=== PATIENT | male | born 1955 | race African-American/Black ===

== ENCOUNTER 2022-05-12 11:10 | Observation (INO) ==
[2022-05-12] MEDS ORDERED: ALUM/MAG/SIMETH/LIDO VISC 1:1 30 ML BOTTLE PO STA (11:45)
[2022-05-12] MEDS ORDERED: ASPIRIN 325 MG TABLET PO STA (11:45)
[2022-05-12] MEDS ORDERED: ONDANSETRON 4 MG/2 ML VIAL IV ONE (11:45)
[2022-05-12] MEDS ORDERED: MORPHINE 2 MG/1 ML SYRINGE IV ONE (11:45)
[2022-05-12 11:57] LABS: Basophils % 0.5 % (0.0-0.8); Eosinophils # 0.2 10*3/uL (0.0-0.87); Eosinophils % 2.5 % (0.00-10.9); Hematocrit 50.5 VOL% (42.0-52.0); Hemoglobin 15.8 GM/DL (14.0-18.0); Immature Granulocytes % 0.6 %; Immature Granulocytes Absolute 0.04 #; Lymphocytes # 1.4 10*3/uL (1.4-4.0); Lymphocytes % 22.5 % (21.2-54.2); Mean Corpuscular HGB Conc 31.3 GM/DL (32-36); Mean Corpuscular Volume 73.6 FL (87-102); Mean Platelet Volume 9.5 FL (9.6-12.0); Monocytes # 0.5 10*3/uL (0.11-0.8); Monocytes % 7.2 % (1.7-12.7); Neutrophils % 66.7 % (38.7-73.9); Platelet Count 250 T/CUMM (130-400); Red Blood Count 6.86 MC/CUMM (3.8-5.5); Red Cell Distribution Width 17.7 % (9.3-17.3); White Blood Count 6.4 T/CUMM (4-12)
[2022-05-12 12:08] LABS: Partial Thromboplastin Time 28.7 SECS (23.7-32.9)
[2022-05-12 12:21] LABS: Albumin 3.9 G/DL (3.4-5.0); Bilirubin,Total 0.8 MG/DL (0.20-1.00); Calcium 9.2 MG/DL (8.5-10.1); Osmolality,Calculated 282.3 MOS/KG (273-304); Potassium 4.7 MMOL/L (3.5-5.1); Total Protein 7.2 G/DL (6.4-8.2)
[2022-05-12] MEDS ORDERED: ACETAMINOPHEN 325 MG TABLET PO PRN (13:45)
[2022-05-12] MEDS ORDERED: ONDANSETRON 4 MG/2 ML VIAL IV PRN (13:45)
[2022-05-12] MEDS ORDERED: MORPHINE 2 MG/1 ML SYRINGE IV PRN (13:45)
[2022-05-12] MEDS ORDERED: NITROGLYCERIN SL 0.4 MG TABLET SL PRN (13:45)
[2022-05-12] MEDS ORDERED: ENOXAPARIN 40 MG/0.4 ML SYRINGE ONE (15:09)
[2022-05-12] MEDS: PANTOPRAZOLE 40 MG TABLET PO SCH (15:18)
[2022-05-12] MEDS ORDERED: ENOXAPARIN 40 MG/0.4 ML SYRINGE SUBCUT SCH (21:00)
[2022-05-13 04:31] LABS: Basophils % 0.7 % (0.0-0.8); Eosinophils # 0.2 10*3/uL (0.0-0.87); Eosinophils % 3.3 % (0.00-10.9); Hematocrit 45.9 VOL% (42.0-52.0); Hemoglobin 14.6 GM/DL (14.0-18.0); Immature Granulocytes % 0.3 %; Immature Granulocytes Absolute 0.02 #; Lymphocytes # 2.6 10*3/uL (1.4-4.0); Lymphocytes % 42.3 % (21.2-54.2); Mean Corpuscular HGB Conc 31.8 GM/DL (32-36); Mean Corpuscular Volume 73.9 FL (87-102); Monocytes # 0.7 10*3/uL (0.11-0.8); Monocytes % 12.2 % (1.7-12.7); Neutrophils % 41.2 % (38.7-73.9); Platelet Count 226 T/CUMM (130-400); Red Blood Count 6.21 MC/CUMM (3.8-5.5); Red Cell Distribution Width 17.2 % (9.3-17.3); White Blood Count 6.1 T/CUMM (4-12)
[2022-05-13 04:53] LABS: Calcium 8.7 MG/DL (8.5-10.1); Osmolality,Calculated 281.3 MOS/KG (273-304); Risk Ratio 2.98; VLDL Cholesterol 11.4 MG/DL
[2022-05-13] MEDS: PANTOPRAZOLE 40 MG TABLET PO SCH (08:05)
[2022-05-13] MEDS ORDERED: ASPIRIN EC 325 MG TABLET PO SCH (09:00)
[2022-05-13 12:35] VITALS: BP 123/79
== END 2022-05-13 12:52 | disposition home health service (06) ==
LOC: N.ED 11:10 → N.EDINP 11:10 → SUATTDRO 13:45 → N.TELES 15:38
PROVIDERS: ADMIT Emergency Medicine; ATTEND Internal Medicine